=== PATIENT | female | born 1995 | race African-American/Black ===

== ENCOUNTER 2025-03-18 11:24 | Emergency (ER) | payer OTHER ==
[~2025-03-18] VITALS: Ht 172.7 cm; Wt 64.0 kg
[2025-03-18 11:26] VITALS: PULSE 86; RESP 14; O2SAT 99
[2025-03-18 11:34] VITALS: BP 106/78; TEMP 36.9; O2SAT 99
[2025-03-18] MEDS: TETANUS, DIPHTHERIA, PERTUSSIS VAC/PF 0.5ML (>10YR OLD) IM ONE (13:29)
[2025-03-18] MEDS: LIDOCAINE HCL 1% 20ML VIAL INFIL ONE (13:30)
[2025-03-18] MEDS ORDERED: IBUP-1455 MT (13:35)
[2025-03-18] MEDS: BACITRACIN ZINC OINT UDPKT TOP ONE (14:08)
== END 2025-03-18 14:10 | disposition home or self-care (01) ==
LOC: ER 11:24
DX: S81.812A Laceration without foreign body, left lower leg, initial encounter (principal); Z79.899 Other long term (current) drug therapy; W45.8XXA Other foreign body or object entering through skin, initial encounter; Y93.89 Activity, other specified; Y92.89 Other specified places as the place of occurrence of the external cause; Y99.8 Other external cause status
CPT/HCPCS: 12002; 99282; J2003; Z7610

== ENCOUNTER 2025-03-28 15:33 | Emergency (ER) | payer OTHER ==
[~2025-03-28] VITALS: Ht 167.6 cm; Wt 61.0 kg
[~2025-03-28 15:33] MED LIST: IBUP-1455 MT
[2025-03-28 15:49] VITALS: O2SAT 99
[2025-03-28 16:18] VITALS: BP 94/64; PULSE 66; RESP 16; TEMP 36.8; O2SAT 99
== END 2025-03-28 16:25 | disposition home or self-care (01) ==
LOC: ER 15:33
DX: S81.812D Laceration without foreign body, left lower leg, subsequent encounter (principal); Z91.018 Allergy to other foods; X58.XXXD Exposure to other specified factors, subsequent encounter
CPT/HCPCS: 99282